=== PATIENT | female | born 1980 | race Two or more races ===

== ENCOUNTER 2017-04-22 21:15 | Emergency (ER) | payer OTHER ==
[~2017-04-22] VITALS: Ht 177.8 cm; Wt 87.1 kg
[2017-04-22] MEDS ORDERED: ATORVASTATIN CA20 MG ORAL (22:01)
[2017-04-22] MEDS ORDERED: METFORMIN HCL500 M1 ORAL (22:01)
[2017-04-22 22:10] VITALS: BP 105/75
[2017-04-22] MEDS ORDERED: PERCOCET 5-3251 EACH ORAL (22:16)
[2017-04-22] MEDS ORDERED: IBUPROFEN600 MG ORAL (22:16)
[2017-04-22 22:27] VITALS: BP 105/75
--- NOTE | 2017-04-22 22:34 | Emergency Room Report ---
History of Present Illness General Chief Complaint: Pain Source: Patient Present Illness HPI 29-year-old female presenting with rash and pain. Patient states that she was diagnosed with shingles 3 weeks ago, right lower back and wrapping around, states that she finished course of acyclovir. Patient states that she had return of the rash,. Painful. Patient states that she took Tylenol with no relief. Denies any purulent drainage to rash. Denies any fever or chills. Denies any headache chest pain shortness of breath nausea vomiting. Allergies: Coded Allergies: No Known Allergies (Unverified , 04/22/17) Patient History Past Medical History: see triage record Past Surgical History: none Pertinent Family History: none Last Menstrual Period: 26 days ago Reviewed Nursing Documentation: PMH: Agreed, PSxH: Agreed Nursing Documentation-PMH Hx Cardiac Problems: Yes - SHINGLES,HIGH CHOLESTEROL Hx Diabetes: Yes - PRE DIABETIC Review of Systems All Other Systems: negative except mentioned in HPI Physical Exam Vital Signs Date Time Temp Pulse Resp B/P (MAP) Pulse Ox O2 Delivery O2 Flow Rate FiO2 04/22/17 21:52 97.3 85 16 105/75 97 Room Air Sp02 EP Interpretation: reviewed, normal General Appearance: normal inspection, well appearing, no apparent distress, alert, GCS 15, non-toxic Head: normocephalic, atraumatic Eyes: bilateral eye normal inspection, bilateral eye PERRL, bilateral eye EOMI ENT: normal ENT inspection, normal pharynx, normal voice, moist mucus membranes Neck: normal inspection, full range of motion, supple Respiratory: normal inspection, lungs clear, normal breath sounds, no respiratory distress, no retraction, no wheezing, speaking full sentences, chest symmetrical Cardiovascular #1: normal inspection, regular rate, rhythm, no edema, normal capillary refill Cardiovascular #2: 2+ radial (R), 2+ radial (L) Gastrointestinal: normal inspection, non tender, soft, non-distended, no guarding Musculoskeletal: normal inspection, back normal, normal range of motion, non- tender Neurologic: normal inspection, alert, oriented x3, responsive, motor strength/ tone normal, sensory intact, normal gait, speech normal Psychiatric: normal inspection, judgement/insight normal, memory normal Skin: warm/dry, well hydrated, normal turgor, other - Right lower lumbar dermatomal rash, 2, 2 x 2 centimeter, blanching tender to palpation, no purulent drainage Medical Decision Making Diagnostic Impression: Primary Impression: History of shingles ER Course 29-year-old female history of shingles that presenting with rash and pain DDX: Shingles No signs of infection Plan: Pain control ER course: Patient has remained stable during ED stay. Disposition: Patient is to be discharged to home. Prescriptions given are Motrin and Percocet Patient is instructed to follow up with their primary care doctor within 5 days. Strict return precautions discussed with patient such as fever, chills, worsening/severe pain, nausea, vomiting, which may indicate severe illness. Patient verbalizes understanding and agrees with plan. Please note that this Emergency Department Report was dictated using [employer] technology software, occasionally this can lead to erroneous entry secondary to interpretation by the dictation equipment Last Vital Signs Date Time Temp Pulse Resp B/P (MAP) Pulse Ox O2 Delivery O2 Flow Rate FiO2 04/22/17 21:52 97.3 85 16 105/75 97 Room Air Disposition: HOME, SELF-CARE Condition: Stable Scripts Oxycodone/Acetaminophen 5-325* (PERCOCET 5-325 MG TABLET*) 1 Each Tablet 1 TAB ORAL Q4H Y for For Pain, #15 TAB 0 Refills Prov: Jj Obrien M.D. 04/22/17 Ibuprofen* (MOTRIN*) 600 Mg Tablet 600 MG ORAL Q8H Y for For Pain, #30 TAB 0 Refills Prov: Jj Obrien M.D. 04/22/17 Additional Instructions: Please follow up with your primary care doctor within 3 days. Please take your prescription medication as directed. Please come back to the emergency room if you are having severe/worsening pain, headache, chest pain, shortness of breath, or intractable nausea or vomiting Jj Obrien M.D. Apr 22, 2017 22:34
== END 2017-04-22 22:40 | disposition home or self-care (01) ==
LOC: EMR 22:35
DX: R21 Rash and other nonspecific skin eruption (principal); E78.00 Pure hypercholesterolemia, unspecified
CPT/HCPCS: 99284